=== PATIENT | male | born 1955 | race Caucasian/White ===

== ENCOUNTER 2016-12-08 14:51 | Inpatient (IN) | payer SELFPAY ==
--- NOTE | 2016-12-08 15:00 | EDPHY ---
H & P Stated Complaint: SOB and legs swelling x 4 mo;sent from [facility] for eval Time Seen by Provider: 12/08/16 14:59 HPI/ROS: CHIEF COMPLAINT: Dyspnea HISTORY OF PRESENT ILLNESS: The patient presents to the emergency department with a 4 month history of dyspnea and bilateral pedal edema. The patient has not had regular follow-up with a primary care provider. The patient denies chest pain. The patient reports he is currently taking insulin for type 2 diabetes. He reports his blood sugars have been fairly well controlled over the past week. The patient denies fever, cough, congestion or diarrhea. The patient denies prior history of kidney disease. The patient denies history of malignancy. The patient has had fairly significant weight gain. The patient does report abdominal wall swelling in addition to bilateral pedal edema. REVIEW OF SYSTEMS: A comprehensive 10 point review of systems is otherwise negative aside from elements mentioned in the history of present illness. Source: Patient Exam Limitations: No limitations - Medical/Surgical History Hx Diabetes: Yes Other PMH: diab type 2 - Social History Smoking Status: Never smoked - Physical Exam Exam: General Appearance: Obese male, deconditioned, no acute distress Eyes: Pupils equal and round no pallor or injection ENT, Mouth: Mucous membranes moist Respiratory: There are no retractions, lungs are clear to auscultation Cardiovascular: Regular rate and rhythm, 4/6 systolic ejection murmur Gastrointestinal: Abdomen is soft and nontender, no masses, bowel sounds normal Neurological: A&O, normal motor function, normal sensory exam, normal cranial nerves Skin: Warm and dry, no rashes Musculoskeletal: Neck is supple nontender Extremities: 4+ pitting edema bilaterally Psychiatric: Patient is oriented X 3, there is no agitation Constitutional: Initial Vital Signs Temperature (C) 36.6 C 12/08/16 14:54 Heart Rate 84 12/08/16 14:54 Respiratory Rate 18 12/08/16 14:54 Blood Pressure 126/68 H 12/08/16 14:54 O2 Sat (%) 96 12/08/16 14:54 O2 Delivery Mode Room Air Allergies/Adverse Reactions: No Known Allergies Allergy (Unverified 12/08/16 14:58) Home Medications: Medication Instructions Recorded Insulin Regular Human [novoLIN R] 0 unit SQ AD 12/08/16 Medical Decision Making - Diagnostics EKG Interpretation: EKG: Complete interpretation has been separately recorded in the [facility] archive. Summary impression: Sinus rhythm, Q-waves noted in the inferior leads , nonspecific ST T wave changes present Imaging Results: Imaging Impressions Chest X-Ray 12/08/16 15:06 Impression: Probable congestive heart failure. Abdomen CT 12/08/16 16:04 Impression: 1. Hepatic cirrhosis with small paraesophageal and upper abdominal venous varices. 2. Retroperitoneal lymphadenopathy, most pronounced in the pelvis involving the left common, internal, and external iliac lymph node chains, left obturator lymph node, and left common femoral lymph nodes. There is no evidence of common iliac or IVC compression, however. A neoplastic lymphoproliferative disorder should be excluded. 3. Mild generalized anasarca. 4. Morbid obesity. 5. Single punctate gallstone (cholelithiasis, without cholecystitis or bile duct dilatation). 6. Mild groundglass attenuation pneumonitis at the lung bases, left greater than right. This could inflammatory or infectious, or associated with passive congestion. Findings were discussed with Pollo Barron MD at 18:21, on 12/08/2016. ED Course/Re-evaluation: The patient presents to the ED with dyspnea on exertion and significant weight gain with anasarca. The patient is noted to have stable vital signs. His EKG demonstrates no evidence of arrhythmia. The patient's chest x-ray does suggest mild heart failure. The patient did receive IV Lasix in the emergency department. I have ordered a CT scan of the abdomen pelvis to evaluate possible IVC compression as an additional etiology of his lower extremity edema. I do feel the patient should be admitted to the hospital for further evaluation and management of his presumed right heart failure. The patient has no evidence of significant renal failure or low protein state to explain his significant edema. Consultation was made with Dr. Santos Chavarria from the hospitalist service. The patient will be admitted to the hospital this evening for observation and further management. The patient remained hemodynamically stable throughout his stay in the ED. The patient will be admitted for further workup of his presumed heart failure including echocardiogram, telemetry monitoring and cardiology consultation. The patient did have a CT scan of the abdomen pelvis which does demonstrate some retroperitoneal adenopathy of uncertain clinical significance. Workup at this condition will be deferred to the admitting hospitalist service. Differential Diagnosis: Differential diagnosis considered includes nephrotic syndrome, congestive heart failure, cor pulmonale, renal failure, low protein state, anemia - Data Points Laboratory Results: Laboratory Results 12/08/16 15:25 12/08/16 15:25 12/08/16 12/08/16 12/08/16 15:25 15:25 15:25 WBC 7.49 10^3/uL 10^3/uL (3.80-9.50) RBC 3.79 10^6/uL L 10^6/uL (4.40-6.38) Hgb 13.4 g/dL L g/dL (13.7-17.5) Hct 38.7 % L % (40.0-51.0) MCV 102.1 fL H fL (81.5-99.8) MCH 35.4 pg H pg (27.9-34.1) MCHC 34.6 g/dL g/dL (32.4-36.7) RDW 14.6 % % (11.5-15.2) Plt Count 191 10^3/uL 10^3/uL (150-400) MPV 11.5 fL fL (8.7-11.7) Neut % (Auto) 50.8 % % (39.3-74.2) Lymph % (Auto) 34.3 % % (15.0-45.0) Ida % (Auto) 8.1 % % (4.5-13.0) Eos % (Auto) 4.5 % % (0.6-7.6) Baso % (Auto) 1.5 % % (0.3-1.7) Nucleat RBC Rel Count 0.0 % % (0.0-0.2) Absolute Neuts (auto) 3.80 10^3/uL 10^3/uL (1.70-6.50) Absolute Lymphs (auto) 2.57 10^3/uL 10^3/uL (1.00-3.00) Absolute Monos (auto) 0.61 10^3/uL 10^3/uL (0.30-0.80) Absolute Eos (auto) 0.34 10^3/uL 10^3/uL (0.03-0.40) Absolute Basos (auto) 0.11 10^3/uL H 10^3/uL (0.02-0.10) Absolute Nucleated RBC 0.00 10^3/uL 10^3/uL (0-0.01) Immature Gran % 0.8 % % (0.0-1.1) Immature Gran # 0.06 10^3/uL 10^3/uL (0.00-0.10) PT 15.5 SEC H SEC (12.0-15.0) INR 1.23 H (0.83-1.16) D-Dimer 2.13 ug/mLFEU H ug/mLFEU (0.00-0.50) Sodium 141 mEq/L mEq/L (134-144) Potassium 4.1 mEq/L mEq/L (3.5-5.2) Chloride 110 mEq/L mEq/L (97-110) Carbon Dioxide 23 mEq/l mEq/l (22-31) Anion Gap 8 mEq/L mEq/L (8-16) BUN 16 mg/dL mg/dL (7-23) Creatinine 0.6 mg/dL L mg/dL (0.7-1.3) Estimated GFR > 60 Glucose 172 mg/dL H mg/dL (70-100) Calcium 8.0 mg/dL L mg/dL (8.5-10.4) Total Bilirubin 4.1 mg/dL H mg/dL (0.1-1.4) Conjugated Bilirubin 2.1 mg/dL H mg/dL (0.0-0.5) Unconjugated Bilirubin 2.0 mg/dL H mg/dL (0.0-1.1) AST 81 IU/L H IU/L (17-59) ALT 53 IU/L IU/L (21-72) Alkaline Phosphatase 244 IU/L H IU/L (38-126) Troponin I 0.031 ng/mL ng/mL (0-0.034) NT-Pro-B Natriuret Pep 600 pg/mL H pg/mL (0-125) Total Protein 7.0 g/dL g/dL (6.3-8.2) Albumin 2.9 g/dL L g/dL (3.5-5.0) Medications Given: Discontinued Medications Furosemide (Lasix Injection) 40 mg IVP EDNOW ONE Stop: 12/08/16 16:06 Last Admin: 12/08/16 16:15 Dose: 40 mg Departure - Departure Disposition: [facility] Clinical Impression: Right heart failure, Dyspnea on exertion Condition: Fair
--- NOTE | 2016-12-08 15:19 | CPEKG ---
Heart Rate: 82 RR Interval: 732 P-R Interval: 164 QRSD Interval: 102 QT Interval: 416 QTC Interval: 486 P [place]: 55 QRS [place]: -47 T Wave [place]: 97 EKG Severity - ABNORMAL ECG - EKG Impression: SINUS RHYTHM EKG Impression: VENTRICULAR PREMATURE COMPLEX Electronically Signed By: Pollo Barron 08-Dec-2016 17:53:11
[2016-12-08 15:37] LABS: % IMMATURE GRANULYOCYTES 0.8 % (0.0-1.1); ABSOLUTE IMMATURE GRANULOCYTES 0.06 10^3/uL (0.00-0.10); ADD DIFF? NO; ADD MORPH? NO; ADD SCAN? NO; ATYPICAL LYMPHOCYTE FLAG 30 (0-99); FRAGMENT RBC FLAG 0 (0-99); HEMATOCRIT 38.7 % (40.0-51.0); HEMOGLOBIN 13.4 g/dL (13.7-17.5); LEFT SHIFT FLG 0 (0-99); LIPEMIA HEMOLYSIS FLAG 90 (0-99); MEAN CELL HEMOGLOBIN 35.4 pg (27.9-34.1); MEAN CELL HEMOGLOBIN CONCENTR. 34.6 g/dL (32.4-36.7); MEAN CELL VOLUME 102.1 fL (81.5-99.8); MEAN PLATELET VOLUME 11.5 fL (8.7-11.7); PLATELET CLUMPS FLAG 10 (0-99); PLATELET COUNT 191 10^3/uL (150-400); RED BLOOD CELL COUNT 3.79 10^6/uL (4.40-6.38); RED CELL DISTRIBUTION WIDTH 14.6 % (11.5-15.2)
[2016-12-08 15:46] LABS: ALANINE AMINOTRANSFERASE 53 IU/L (21-72); ALBUMIN 2.9 g/dL (3.5-5.0); ALKALINE PHOSPHATASE 244 IU/L (38-126); ANION GAP 8 mEq/L (8-16); ASPARTATE AMINOTRANSFERASE 81 IU/L (17-59); BILIRUBIN,TOTAL 4.1 mg/dL (0.1-1.4); BILIRUBIN-CONJUGATED 2.1 mg/dL (0.0-0.5); CARBON DIOXIDE 23 mEq/l (22-31); CHLORIDE 110 mEq/L (97-110); CREATININE 0.6 mg/dL (0.7-1.3); GLOMERULAR FILTRATION RATE > 60; GLUCOSE 172 mg/dL (70-100); POTASSIUM 4.1 mEq/L (3.5-5.2); SODIUM 141 mEq/L (134-144)
[2016-12-08 15:55] LABS: TROPONIN I 0.031 ng/mL (0-0.034)
[2016-12-08] MEDS ORDERED: FUROSEMIDE 40 MG/4 ML VIAL IVP ONE (16:05)
[2016-12-08 16:06] LABS: INR 1.23 (0.83-1.16); PROTIME(PATIENT) 15.5 SEC (12.0-15.0)
[2016-12-08] MEDS ORDERED: IOPAMIDOL (ISOVUE-300) 100 ML BTL ONE (16:11)
[2016-12-08] MEDS ORDERED: ACETAMINOPHEN 325 MG TAB PO PRN (17:11)
[2016-12-08] MEDS ORDERED: ONDANSETRON DISINTEGRATING 4 MG TAB PO PRN (17:11)
[2016-12-08] MEDS ORDERED: TEMAZEPAM 15 MG CAP PO PRN (17:11)
[2016-12-08] MEDS ORDERED: ONDANSETRON 4 MG/2 ML VIAL IVP PRN (17:11)
[2016-12-08] MEDS ORDERED: D50W 25 GM/50 ML SYR IVP PRN (17:13)
--- NOTE | 2016-12-08 17:52 | GHP ---
[f rep st] HISTORY AND PHYSICAL DATE OF ADMISSION: 12/08/2016 CHIEF COMPLAINT: 20 pounds' weight gain. HISTORY OF PRESENT ILLNESS: This is a 61-year-old male with a history of diabetes who presents with lower extremity edema, increasing abdominal girth and weight gain. He tells me this has been going on since about fall. He has also noticed that he gets extremely short of breath walking to the mailbox. Previously, he said he used to be able to walk about 15 miles a day, 2 years ago. He denies any chest pain. He has never seen a palliative care coordinator, never had any heart problems before. He was told about a new murmur in July. He denies any change in the color of his urine or his stool color. He drinks alcohol, it sounds as though he binges occasionally but does not have a significant history. PAST MEDICAL/SURGICAL HISTORY: Diabetes mellitus type 2. MEDICATIONS: Please see medication reconciliation. ALLERGIES: No known drug allergies. FAMILY HISTORY: Both parents had heart problems in their 70s. REVIEW OF SYSTEMS: 10-point review of systems is conducted and is negative except per HPI. [place]IAL HISTORY[place] PHYSICAL EXAM: VITAL SIGNS: Blood pressure 113/69, heart rate is 76, respiration rate 20, saturating 95% on room air. Temperature is 36.8. GENERAL : The patient is a pleasant man who is sitting comfortably, in no acute distress. HEENT: Normocephalic, atraumatic. CARDIOVASCULAR: Regular rate and rhythm. He has a crescendo/decrescendo systolic murmur, heard best at the right upper sternal border. S1 and S2 are both obliterated. PULMONARY: He has mild bilateral basilar rales. He is breathing comfortably. ABDOMEN: He has a firm abdomen, there is no guarding or rebound. It is not tender to palpation. SKIN: No rash. : No Dean. NEUROLOGIC: Alert and oriented x3. He is moving all extremities. PSYCHIATRIC: Normal mood and affect. EXTREMITIES: 2+ bilateral lower extremity pitting edema. LABS: Hemoglobin 13. INR is 1.2. Total bilirubin is 4.1, 2.1 is conjugated. AST is 81, alkaline phosphatase is 244. BNP is 600. DATA: 1. ECG, which I personally viewed and interpreted, shows 1 PVC, otherwise he is in sinus rhythm. He has slow R-wave progression. He has an LAFB. 2. Chest x-ray shows findings compatible with CHF with borderline cardiomegaly and engorged pulmonary vasculature. I discussed this with Dr. Barron, we will admit to med/surg. IMPRESSION AND PLAN: A 61-year-old man with volume overload. 1. Volume overload: I suspect that this is going to be left-sided heart failure, and I am concerned about him having severe aortic stenosis. Also consider cirrhosis or hypoalbuminemia. CT scan of his abdomen has been ordered , this will assess his liver. I have ordered bilateral lower extremity ultrasounds to rule out DVT. Echocardiogram has been ordered. We will trend his troponins, as well. 2. Elevated D-dimer: Given his x-ray findings, I doubt pulmonary embolism. Lower extremity ultrasounds have been ordered, as above. If he does have very severely elevated right-sided pressures with normal left-sided function, would consider CT angiogram. 3. Elevated liver function tests: CT scan has been ordered. This will evaluate his liver. I have also ordered an acute hepatitis panel. 4. Mild anemia. 5. Mild coagulopathy. 6. Diabetes mellitus type 2: We will continue his home insulin and follow his blood glucoses, and place him on sliding scale insulin. 7. Venous thromboembolism risk: He is moderate; however, he is being admitted as observation. If he becomes an inpatient, would prophylax him with Lovenox. /[id number]/MODL MTDD
[2016-12-08] MEDS: INSULIN LISPRO 100 UNIT/ML SC SCH (18:39)
[2016-12-08 19:24] LABS: TROPONIN I 0.043 ng/mL (0-0.034)
[2016-12-09 04:40] LABS: % IMMATURE GRANULYOCYTES 0.5 % (0.0-1.1); ABSOLUTE IMMATURE GRANULOCYTES 0.03 10^3/uL (0.00-0.10); ADD DIFF? NO; ADD MORPH? NO; ADD SCAN? NO; ATYPICAL LYMPHOCYTE FLAG 30 (0-99); FRAGMENT RBC FLAG 0 (0-99); HEMATOCRIT 37.9 % (40.0-51.0); HEMOGLOBIN 12.9 g/dL (13.7-17.5); LEFT SHIFT FLG 0 (0-99); LIPEMIA HEMOLYSIS FLAG 90 (0-99); MEAN CELL VOLUME 102.7 fL (81.5-99.8); MEAN PLATELET VOLUME 11.5 fL (8.7-11.7); PLATELET CLUMPS FLAG 0 (0-99); PLATELET COUNT 175 10^3/uL (150-400); RED BLOOD CELL COUNT 3.69 10^6/uL (4.40-6.38); RED CELL DISTRIBUTION WIDTH 14.5 % (11.5-15.2)
[2016-12-09 04:43] LABS: COLOR AMBER; LEUKOCYTE ESTERASE,URINE NEGATIVE (NEGATIVE); NITRITE,URINE NEGATIVE (NEGATIVE)
[2016-12-09 04:55] LABS: ALANINE AMINOTRANSFERASE 53 IU/L (21-72); ALBUMIN 2.5 g/dL (3.5-5.0); ALKALINE PHOSPHATASE 222 IU/L (38-126); ANION GAP 7 mEq/L (8-16); ASPARTATE AMINOTRANSFERASE 74 IU/L (17-59); BILIRUBIN,TOTAL 4.5 mg/dL (0.1-1.4); CALCIUM 8.1 mg/dL (8.5-10.4); CARBON DIOXIDE 23 mEq/l (22-31); CHLORIDE 111 mEq/L (97-110); CREATININE 0.6 mg/dL (0.7-1.3); GLOMERULAR FILTRATION RATE > 60; GLUCOSE 87 mg/dL (70-100); POTASSIUM 3.9 mEq/L (3.5-5.2); SODIUM 141 mEq/L (134-144); TOTAL PROTEIN 6.3 g/dL (6.3-8.2)
[2016-12-09 05:27] LABS: BILIRUBIN-CONJUGATED 2.3 mg/dL (0.0-0.5); BILIRUBIN-UNCONJUGATED 2.2 mg/dL (0.0-1.1)
[2016-12-09] MEDS: INSULIN LISPRO 100 UNIT/ML SC SCH ×3 (08:39→18:18)
[2016-12-09] MEDS: FUROSEMIDE 40 MG/4 ML VIAL IVP SCH ×2 (08:50→16:30)
--- NOTE | 2016-12-09 11:42 | ECHO ---
[id number] + + [address] : : [place] [address] : : [phone] + Adult Echocardiographic Report + ------+ :Name: Emmanuel MILLERvinicius Date: 12/09/2016 09:47 AM : : Hospital Ad[facility]: [id number] n: [facility]: :: 1955 Gender: Male Height: 67 in : :Age: 61 yrs Race: WH Weight: 240 lb : :Reason For Study: CHF : : BSA: 2.2 meters 2 : + ------+ MMode/2D Measurements \T\ Calculations IVSd: 1.0 cm LVIDd: 5.6 cm FS: 36.1 % LA dimension: LVPWd: 1.1 cm LVIDs: 3.6 cm EDV(Teich): 4.8 cm 151.0 ml ESV(Teich): 52.7 ml EF(Teich): 65.1 % LVOT diam: LVLd ap4: 9.5 cm SV(MOD-sp4): 2.1 cm EDV(MOD-sp4): 109.0 ml LVOT area: 156.0 ml 3.6 cm2 LVLs ap4: 7.6 cm ESV(MOD-sp4): 47.0 ml EF(MOD-sp4): 69.9 % Normal Measurement Values: + + :LVIDd (3.5-5.7cm) IVSd (0.6-1.1cm) LVPWd (0.6-1.1cm) Aortic Root (2.0-3.7cm)Left Atrium (1.5-4.0cm): :LV Vol(d) (76-115ml) LV Vol(s) (29-48ml) Ejec Fraction (50-65%)PV Cristofer (0.6- 1.2m/s) TV Cristofer (0.4-1.0m/s) : :MV E Cristofer (0.8-1.0m/s)MV A Cristofer (0.3-1.0m/s)LVOT Cristofer (0.7-1.2m/s) Asc Ao Cristofer ( 0.9-1.8m/s) : + + Doppler Measurements \T\ Calculations MV E max cristofer: MV V2 mean: Ao mean PG: LV V1 max: 150.3 cm/sec 89.0 cm/sec 50.1 mmHg 103.6 cm/sec MV A max cristofer: MV mean PG: Ao V2 mean: LV V1 max P.7 cm/sec 4.1 mmHg 335.0 cm/sec 4.3 mmHg MV E/A: 2.1 MV V2 VTI: 43.6 cm Ao V2 VTI: LV V1 mean PG: MV dec time: MVA(VTI): 1.9 cm2 110.9 cm 3.0 mmHg 0.26 sec SHOSHANA(I,D): 0.73 cm2 LV V1 mean: 75.2 cm/sec LV V1 VTI: 22.7 cm SV(LVOT): 81.4 ml TR max cristofer: 306.2 cm/sec TR max P.5 mmHg RAP systole: 5.0 mmHg RVSP(TR): 42.5 mmHg Left Ventricle The left ventricle is normal in size. There is mild concentric left ventricular hypertrophy. Left ventricular systolic function is normal. Ejection Fraction = 65-70%. No regional wall motion abnormalities noted. Right Ventricle The right ventricle is normal in size and function. Atria The left atrium is mildly dilated. Right atrial size is normal. The interatrial septum is intact with no evidence for an atrial septal defect. Mitral Valve Calcified mitral apparatus. There is no evidence of mitral valve prolapse. There is no mitral valve stenosis. There is mild mitral regurgitation. Tricuspid Valve Normal tricuspid valve. There is mild tricuspid regurgitation. Aortic Valve Severe aortic calcification. Severe valvular aortic stenosis. AV max PG is 83mmHG. AV mean PG is 50mmHG. Mild to moderate aortic regurgitation. Pulmonic Valve The pulmonic valve is normal in structure and function. Trace pulmonic valvular regurgitation. Great Vessels The aortic root is normal size. Pericardium/Pleural There is no pericardial effusion. Conclusion A complete two-dimensional transthoracic echocardiogram was performed (2D, M-mode, Doppler and color flow Doppler). Left ventricular systolic function is normal. There is mild concentric left ventricular hypertrophy. Ejection Fraction = 65-70%. Normal wall motion. The left atrium is mildly dilated. Calcified mitral apparatus. There is mild mitral regurgitation. There is mild tricuspid regurgitation. Severe aortic calcification. Unknown number of aortic valve leaflets. Severe valvular aortic stenosis. AV max PG is 83mmHG. AV mean PG is 50mmHG. Mild to moderate aortic regurgitation. Trace pulmonic valvular regurgitation. Final Reading Physician: Jennifer Molina signed on 12/09/2016 11:41 AM Ordering Physician: Santos Chavarria Performed By: Augusta Crook RDCS
--- NOTE | 2016-12-09 14:55 | GCON ---
[f rep st] CONSULTATION CARDIOLOGY CONSULTATION We were asked by Dr. Chavarria to evaluate Mr. Delgado for his aortic stenosis and CHF. HISTORY OF PRESENT ILLNESS: The patient is a 61-year-old male with a past medical history significa nt for obesity, aortic stenosis, type 2 diabetes mellitus who is admitted for new onset CHF. He rep orts symptoms approximately since the fall. He would note dyspnea with exerting himself such as wal dona to his mailbox and back. He had an acute episode of worsening shortness of breath where he wou ld feel very short of breath just walking from room to room in his house in the setting of a URI. H e increased his hydration and felt that symptoms improved. What prompted his admission was dyspnea with associated orthopnea and PND. He was unable to lie down to sleep which was very unusual for hi m. He denies any chest pain, presyncope, syncope, or lightheadedness. He has noted worsening perip heral edema which has improved with diuretic therapy just since being admitted yesterday. PAST MEDICAL HISTORY: Type 2 diabetes mellitus. SURGERIES: None listed. SOCIAL HISTORY: Patient lives by himself in the [facility]. He is a nonsmoker. He reports no signi ficant alcohol recently. Over the summer, he had a lot of stress and does endorse binge drinking at that time. REVIEW OF SYSTEMS: As per HPI. A complete 10-point review of systems was obtained and is negative except for what is dictated. PHYSICAL EXAMINATION: VITAL SIGNS: BP of 131/65, heart rate 76, respirations 18, O2 saturation 94% on room air, temp of 99.2 degrees Fahrenheit. GENERAL: He is a very pleasant male appearing somew hat pale. No apparent distress. HEENT: Normocephalic atraumatic. Eyes are EILEEN with mild scleral icterus. HEART: With a harsh holosystolic murmur radiating to his carotids. LUNGS: Clear to aus cultation. ABDOMEN: Obese, nontender with normoactive bowel sounds. SKIN: With 1+ edema present. PSYCH: Normal mood and affect due to given situation. LABORATORY STUDIES: CBC with WBC 6.35, hemoglobin 12.9, hematocrit 37.5, platelet count of 175. BM P with sodium 141, potassium 3.9, chloride 111, CO2 of 23, BUN 14, creatinine 0.6, glucose 106. Tro ponin 0.03, then 0.037. AST 74, ALT 53, alkaline phosphatase of 222. TSH of 1.76. Echocardiogram reviewed and shows EF of 65-70, mild concentric LVH with mildly dilated left atrium. MAC with mild MR and mild TR present, severe with mean gradient of 50, mild to moderate AR. 12-lead ECG personally interpreted demonstrates sinus rhythm with slow R-wave progression, LAFB, 1 P VC, and lateral ST-T wave abnormalities. Chest x-ray shows findings compatible with CHF. Abdominal CT reviewed shows hepatic cirrhosis with small paraesophageal and upper abdominal venous varices, retroperitoneal lymphadenopathy most pronou nced in the pelvis involving the left common internal and external iliac lymph node chains, left obt urator lymph nodes, and left common femoral lymph nodes. A neoplastic lymphoproliferative disorder cannot be excluded. Mild generalized anasarca. IMPRESSION AND PLAN: The patient is a 61-year-old male admitted with new onset congestive heart karely lure likely developed in the fall with worsening in the past few days. 1. Severe . Patient is advised that this surgical versus trans aortic valvular replacement alfredo d be considered. He has many psychosocial issues including lack of insurance and possibly having to move out of his home that is complicating his medical decision-making at this point. I have advise d that we obtain a surgical consult to further lay out his options. 2. Cirrhosis. He will need to see GI to have this addressed prior to any kind of cardiac intervent ion being undertaken. 3. Congestive heart failure. He has diastolic congestive heart failure related to his valvular hea rt disease. He has a diuresed only 1 kg but reports feeling improved. He is advised that he does s till appear volume overloaded and is advised to continue IV diuresis and transition to p.o. He will consider this. /[id number]/MODL
--- NOTE | 2016-12-09 15:18 | HOSPPROG ---
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 Malik Jacques from GI [facility] will see the patient in consultation # macrocytic anemia # mild coagulopathy due to hepatic dysfunction # diabetes mellitus type 2 disposition: Changed to inpatient status since he will need further hospitalization for IV diuresis and further workup of his cirrhosis and heart failure. Subjective: Reports improved swelling and shortness of breath. No chest pain. Reports 3 alcoholic drinks per night for the past few weeks Objective: Vital Signs Temp Pulse Resp BP Pulse Ox 37.3 C 76 18 131/65 H 94 12/09/16 11:48 12/09/16 11:48 12/09/16 11:48 12/09/16 11:48 12/09/16 11:48 Laboratory Results 12/09/16 04:31 12/09/16 04:31 PT 15.5 SEC (12.0-15.0) H 12/08/16 15:25 INR 1.23 (0.83-1.16) H 12/08/16 15:25 CT of the abdomen pelvis was reviewed consistent with cirrhosis - Physical Exam Constitutional: no apparent distress, appears nourished, not in pain Ears, Nose, Mouth, Throat: moist mucous membranes, hearing normal, ears appear normal, no oral mucosal ulcers Cardiovascular: regular rate and rhythym, systolic murmur, JVD, edema Respiratory: no respiratory distress, no rales or rhonchi, clear to auscultation Gastrointestinal: normoactive bowel sounds, soft, non-tender abdomen, no palpable masses, distension, No guarding, No rebound ICD10 Worksheet Patient Problems: Problems Problem Status Onset Right heart failure Acute Dyspnea on exertion Acute
[2016-12-09] MEDS: SPIRONOLACTONE 25 MG TAB PO SCH (16:30)
--- NOTE | 2016-12-09 17:06 | GCON ---
[f rep st] CONSULTATION GI INPATIENT CONSULTATION DATE OF CONSULTATION: 12/09/2016 I was kindly requested to see the patient by Dr. Ajay Benedict in consultation for chief complaint of probable cirrhosis. He is a 61-year-old, white male who was admitted to the hospital with anasarca and shortness of breath. He has noticed since the Fall that he has had increase in abdominal girth and weight gain. He also has noticed dyspnea on exertion, even to just walking to the mailbox. He does drink alcohol, and states he has roughly 3 drinks per night. Here in the hospital, he has been found to have severe aortic stenosis with acute heart failure. PAST MEDICAL HISTORY: 1. As above. 2. Diabetes. 3. Otherwise, noncontributory. ALLERGIES: No known drug allergies. INPATIENT MEDICATIONS: Include Lasix 40 mg IV twice a day and spironolactone 50 mg daily. SOCIAL HISTORY: Is as above. He lives by himself in the [facility]. FAMILY HISTORY: Negative for similar anasarca. REVIEW OF SYSTEMS: Positive pertinent review of systems as per my HPI. Otherwise, complete review of systems is negative. PHYSICAL EXAM: CONSTITUTIONAL: Nontoxic-appearing, pleasant gentleman. SKIN: Warm, dry. HEENT: Eyes: Pupils equal, round, reactive to light and accommodation. Ear, nose, mouth and throat: Moist mucosa, no obvious masses. CARDIOVASCULAR: Normal S2, normal PMI. He has a murmur consistent with aortic stenosis. RESPIRATORY: Lungs clear to auscultation and percussion anteriorly. ABDOMEN: Profuse, nontender. EXTREMITIES: Significant pedal edema. NEUROLOGIC: Grossly nonfocal, with cranial nerves grossly intact. PSYCHIATRIC : Orientation, insight appropriate. MUSCULOSKELETAL: Strength grossly normal throughout, normal station. LABORATORIES: Normal electrolytes. Total bilirubin 4.5, with a direct bilirubin of 2.3. AST 74. Alkaline phosphatase 222. Hematocrit 37.9%, with an MCV of 102.7. Platelet count 175,000. Prothrombin time 15.5 with an INR 1.23. Albumin 2.5. Normal TSH. Urinalysis is negative. Hepatitis serology is negative. Abdominal CT scan shows probable cirrhosis, with small varices. Mild anasarca. Positive gallstones. ASSESSMENT: 1. Anasarca. Suspect much of this is due to his severe aortic stenosis and acute heart failure, especially with his dyspnea on exertion. However, also suspect that cirrhosis is playing a role in his abdominal and leg fluid retention. 2. Probable cirrhosis. Indeed, suspect cirrhosis based on his CT and abnormal liver tests. In turn, suspect due to alcohol use. Some contribution from right -sided heart failure is also possible. Other possibilities, such as alpha-1 antitrypsin deficiency, hemochromatosis, autoimmune hepatitis, primary biliary cirrhosis are possible, but much less likely. PLAN: 1. To be complete, we will send blood work for alpha-1 antitrypsin level, hemochromatosis phenotype, CHRISS screen, anti smooth muscle antibody, and antimitochondrial antibody. However, suspect will be negative, and suspect his probable cirrhosis is due to combination of alcohol and right-sided heart failure. 2. Diuretics as per Cardiology, hospitalist service. 3. In terms of potential future aortic valve surgery, he certainly would be at increased risk for this with his probable underlying cirrhosis. However, if felt necessary, suspect the benefits would outweigh the risks. 4. Otherwise, recommend follow up with his outpatient primary care physician. 5. I will sign off. I will follow up on the above blood work, but suspect will be negative. Otherwise, please let me know if I can be of further help in the future. /[id number]/MODL MTDD
[2016-12-10 07:31] VITALS: BP 118/70; PULSE 78; RESP 14; TEMP 98.5; O2SAT 95
[2016-12-10] MEDS: INSULIN LISPRO 100 UNIT/ML SC SCH (07:43)
[2016-12-10] MEDS: SPIRONOLACTONE 25 MG TAB PO SCH (07:59)
[2016-12-10] MEDS: FUROSEMIDE 40 MG/4 ML VIAL IVP SCH (07:59)
--- NOTE | 2016-12-10 11:25 | PDCARPN ---
Cardiology Progress Note Chief Complaint: CHF/ Assessment/Plan: Assessment: 61M PMH DM, obesity, p/w new onset heart failure. #. severe : we reviewed that surgical evaluation is needed/ antecedent LHC would be useful pt would like to complete workup as outpatient he is given contacts to establish cardiology and CT follow up as outpatient #. HFpEF: symptoms since fall but severe worsening but prior to admission pt reports breathing improved started on Spironolactone and PO lasix #. cirrhosis/hepatic congestion: has been diuresing well #. DM: continue outpatient insulin therapy Plan: OK to d/c but will need close outpatient follow up 12/10/16 11:19 Subjective: Reports breathing improved. Anxious to leave hospital. Reviewed/Discussed With: hospitalist Objective: Vital Signs (8 Hrs) Temp Pulse Resp BP Pulse Ox 12/10/16 07:29 98.5 F 78 14 118/70 95 Intake/Output (24 Hrs) 12/09/16 12/10/16 12/11/16 05:59 05:59 05:59 Other: Weight 127.6 kg Intake Quantity Yes Sufficient Number of Stools Toilet 2 Result Diagrams: 12/09/16 04:31 12/09/16 04:31 - Physical Exam Constitutional: no apparent distress Eyes: anicteric sclera Cardiovascular: regular rate and rhythm, systolic murmur Skin: other (trace-1+ edema) Neurologic: AAOx3 Psychiatric: cooperative, interactive ICD10 Worksheet Patient Problems: Problems Problem Status Onset Dyspnea on exertion Acute Right heart failure Acute
--- NOTE | 2016-12-10 13:40 | GDS ---
[f rep st] DISCHARGE SUMMARY DISCHARGE DIAGNOSES: 1. Weight gain and anasarca due to below. 2. Acute heart failure with preserved ejection fraction due to severe mitral regurgitation. 3. 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 4. Macrocytic anemia. 5. Mild coagulopathy due to hepatic dysfunction. 6. Diabetes mellitus 2. ADDITIONAL CONSULTING PHYSICIANS: Elbert Sims MD and Dennise Quezada PA-C, from [facility] arology. HOSPITAL COURSE AND STAY BY PROBLEMS: 1. Anasarca due to acute heart failure with concomitant cirrhosis: The patient was admitted to the hospital where he was found to have a very loud systolic murmur at the right upper sternal border. An echocardiogram done on 12/08/2016 confirmed the diagnosis of severe aortic valve stenosis with a n AV mean pressure gradient of 50 mmHg with a max pressure gradient of 83 mmHg. The patient was sta rted on diuretics. On hospital day #1, the patient states he felt much better and really wanted to be discharged from the hospital. It was recommended that he stay in the hospital at least 1 more da y given his lack of significant weight loss. The morning of hospital day #2, once again the patient was fairly adamant about leaving the hospital. He states that he wants to go and would like to obt ain insurance prior to talking with the cardiothoracic surgeon. He was seen by Cardiology on day of discharge who thought it was reasonable for him to discharge on Lasix and Aldactone with close foll owup with them. Prior to seeing CT Surgery, he should have a left heart catheterization to further evaluate his coronary arteries. 2. Cirrhosis: On initial lab workup, the patient was noted to have elevated INR at 1.2. AST was m inimally elevated at 74 with ALT of 53. His albumin was 2.5. A CT of the abdomen and pelvis was do ne that did show hepatic cirrhosis. Dr. Jacques from [facility] was consulted who ordered a hem ochromatosis screen, which is currently pending, as well as an CHRISS and antismooth muscle and antimit ochondrial antibodies, which are also pending. Alpha-1 antitrypsin is pending as well. PHYSICAL EXAM: VITAL SIGNS: On day of discharge, blood pressure 118/70, pulse 78, respiratory rate 14, O2 sat 95% on room air, temperature afebrile. GENERAL: No acute distress. HEART: S1, S2 wit h a loud of 5/6 holosystolic murmur right upper sternal border that radiates to the carotids. LUNGS : Clear. No wheezes, rales, or rhonchi. ABDOMEN: Soft. EXTREMITIES: Improved edema. PERTINENT LABS AND STUDIES: Echocardiogram done 12/08/2016, refer to report. CT of the abdomen don e 12/08/2016, refer to report. Lower extremity Doppler done 12/08/2016 was negative for DVTs. DISCHARGE MEDICATIONS: Please refer to discharge medication reconciliation in [facility] for full det ails. Below is a preliminary list. New medications on hospital discharge, Lasix 20 mg daily and Aldactone 25 mg daily. Prescription fo r #30 was given of each. All other home medications are continued as usual home dosages. DISCHARGE INSTRUCTIONS: The patient will be discharged from the hospital. Once again, he should fo llow up with his primary care provider in the next week as well as Dr. Mason in 2 weeks and with Car diology as instructed. /[id number]/MODL
[2016-12-10 17:45] LABS: ALPHA-1-ANTITRYPSIN SERUM 207 mg/dL (100 - 190)
[2016-12-11 13:41] LABS: ANTINUCLEAR ANTIBODIES SCREEN 1.02 UNITS (<=1.00)
[2016-12-11 14:14] LABS: SMOOTH MUSCLE ANTIBODIES SERUM Negative (Negative)
[2016-12-16 13:28] LABS: INTERPRETATION See Comments
== END 2016-12-10 12:09 | disposition home or self-care (01) | DRG 293 ==
LOC: INTOOBSV 16:40 → F3E 18:08 → OBSVTOIN 12-09 15:30
PROVIDERS: ADMIT Student in an Organized Health Care Education/Training Program; ATTEND Student in an Organized Health Care Education/Training Program
DX: I50.31 Acute diastolic (congestive) heart failure (principal); I35.0 Nonrheumatic aortic (valve) stenosis; K76.0 Fatty (change of) liver, not elsewhere classified; D53.9 Nutritional anemia, unspecified; E11.9 Type 2 diabetes mellitus without complications; E66.01 Morbid (severe) obesity due to excess calories; Z79.4 Long term (current) use of insulin
CPT/HCPCS: 81256-90; 82103-90; 86255-90; 96374; G0378; G0472; J1815; J1940; Q9967

== ENCOUNTER 2017-05-04 06:14 | Day surgery (SDC) | payer MEDICAID ==
[2017-05-04] MEDS ORDERED: diphenhydrAMINE 25 MG CAP PO ONE (06:17)
[2017-05-04] MEDS ORDERED: DIAZEPAM 5 MG TAB PO ONE (06:17)
[2017-05-04] MEDS ORDERED: ASPIRIN EC 325 MG TAB PO ONE (06:17)
[2017-05-04] MEDS ORDERED: NS 1,000 ML IV ONE (06:17)
[2017-05-04] MEDS ORDERED: FAMOTIDINE 20 MG TAB PO ONE (06:17)
--- NOTE | 2017-05-04 06:36 | PDPROPOC ---
Sedation Plan of Care ASA Classification: ASA 2 Planned drugs: fentanyl, midazolam Mallampati Score: Class 2 Mallampati Reference Image: Patient passed 3-3-2 rule?: Yes
--- NOTE | 2017-05-04 06:36 | PDHPUP ---
History & Physical Update H&P update statement: This history and physical update is based on an assessment of the patient which was completed after admission or registration (within 24 hours), but prior to the surgery/procedure. H&P update: no change in patient's condition since H&P completed
[2017-05-04 06:47] LABS: % IMMATURE GRANULYOCYTES 0.5 % (0.0-1.1); ABSOLUTE IMMATURE GRANULOCYTES 0.04 10^3/uL (0.00-0.10); ADD DIFF? NO; ADD MORPH? NO; ADD SCAN? NO; ATYPICAL LYMPHOCYTE FLAG 30 (0-99); FRAGMENT RBC FLAG 0 (0-99); HEMATOCRIT 37.7 % (40.0-51.0); HEMOGLOBIN 13.8 g/dL (13.7-17.5); LEFT SHIFT FLG 0 (0-99); LIPEMIA HEMOLYSIS FLAG 90 (0-99); MEAN CELL HEMOGLOBIN 37.3 pg (27.9-34.1); MEAN CELL HEMOGLOBIN CONCENTR. 36.6 g/dL (32.4-36.7); MEAN CELL VOLUME 101.9 fL (81.5-99.8); MEAN PLATELET VOLUME 10.7 fL (8.7-11.7); PLATELET CLUMPS FLAG 0 (0-99); PLATELET COUNT 189 10^3/uL (150-400); RED CELL DISTRIBUTION WIDTH 13.9 % (11.5-15.2)
--- NOTE | 2017-05-04 06:48 | CPEKG ---
Heart Rate: 84 RR Interval: 714 P-R Interval: 168 QRSD Interval: 108 QT Interval: 420 QTC Interval: 497 P [place]: 55 QRS [place]: -45 T Wave [place]: 115 EKG Severity - ABNORMAL ECG - EKG Impression: SINUS RHYTHM EKG Impression: PROBABLE LEFT ATRIAL ABNORMALITY EKG Impression: LEFT ANTERIOR FASCICULAR BLOCK EKG Impression: LVH WITH SECONDARY REPOLARIZATION ABNORMALITY EKG Impression: BORDERLINE PROLONGED QT INTERVAL Electronically Signed By: Yovanny Rosario 07-May-2017 13:51:53
[2017-05-04 06:57] LABS: INR 1.24 (0.83-1.16); PROTIME(PATIENT) 15.6 SEC (12.0-15.0)
[2017-05-04] MEDS ORDERED: fentaNYL 100 MCG/2 ML INJ ONE (06:57)
[2017-05-04] MEDS ORDERED: MIDAZOLAM 2 MG/2 ML VIAL ONE (06:57)
[2017-05-04] MEDS ORDERED: LIDOCAINE 1% 300 MG/30 ML SDV ONE (06:57)
[2017-05-04] MEDS ORDERED: IOPAMIDOL (ISOVUE-370) 150 ML BTL IV ONE (06:58)
[2017-05-04 07:19] LABS: ANION GAP 11 mEq/L (8-16); CALCIUM 8.6 mg/dL (8.5-10.4); CARBON DIOXIDE 21 mEq/l (22-31); CHLORIDE 107 mEq/L (97-110); CHOLESTEROL 136 mg/dL (140-220); CHOLESTEROL/HDL RATIO 3.32 RATIO (1.00-4.97); CREATININE 0.7 mg/dL (0.7-1.3); GLOMERULAR FILTRATION RATE > 60; GLUCOSE 70 mg/dL (70-100); HIGH DENSITY LIPOPROTEIN 41 mg/dL (40-65); LDL/HDL RATIO 1.98 RATIO (1.00-3.64); LOW DENSITY LIPOPROTEIN 81 mg/dL (80-100); MAGNESIUM 1.6 mg/dL (1.6-2.3); NON-HIGH DENSITY LIPOPROTEIN 95 mg/dL (90-129); POTASSIUM 3.7 mEq/L (3.5-5.2); SODIUM 139 mEq/L (134-144); TRIGLYCERIDE 73 mg/dL (40-150); VERY LOW DENSITY LIPOPROTEINS 14 mg/dL (8-25)
[2017-05-04] MEDS ORDERED: HEPARIN 10,000 UNIT/10 ML MDV ONE (07:25)
[2017-05-04] MEDS ORDERED: ATROPINE SULFATE 1 MG/10 ML SYR ONE (07:35)
[2017-05-04] MEDS ORDERED: ATROPINE SULFATE 1 MG/10 ML SYR IVP PRN (08:05)
[2017-05-04] MEDS ORDERED: ONDANSETRON 4 MG/2 ML VIAL IVP PRN (08:05)
[2017-05-04] MEDS ORDERED: NITROGLYCERIN 0.4 MG BTL SL PRN (08:05)
[2017-05-04] MEDS ORDERED: OXYCODONE/APAP 5/325 TAB PO PRN (08:05)
[2017-05-04] MEDS ORDERED: HYDROCODONE/APAP 5/325 TAB PO PRN (08:05)
--- NOTE | 2017-05-04 10:48 | CPIP ---
[f rep st] INVASIVE CARDIAC PROCEDURE DATE OF PROCEDURE: 05/04/2017 INDICATION FOR PROCEDURE: Shortness of breath, heart failure. PROCEDURE: 1. Nonselective left groin sheathogram. 2. 7-[place]serr[place] sheath, left common femoral vein. 3. Right heart catheterization with Danby-Luli catheter. 4. Bilateral coronary angiography. 5. Left groin closure with 6-[place] Angio-Seal. HISTORY: Briefly, this is a 62-year-old male with history of critical aortic stenosis, recurrent hea rt failure, who has been complaining of worsening shortness of breath. The patient had been seen by CT Surgery by Dr. Glen Mason, and due to the patient's significant obesity, as well as history of pu lmonary hypertension and severe lifestyle, social limitations, the patient was deemed to be a high-ri sk candidate for open-heart surgery. The patient presents for right and left heart catheterization, in anticipation for eventually TAVR. DESCRIPTION OF PROCEDURE: After informed consent was obtained, patient brought to [facility], where the lef t groin was prepped and draped in sterile fashion Using lidocaine, a short 6-Montserratian sheath was introd uced into the left common femoral artery, verified angiographically. A 7-Montserratian sheath in the left c ommon vein. Through the 7-Montserratian sheath, a Danby-Luli catheter was advanced. Right heart catheteriza tion was then obtained, which showed a mean RA pressure of 19, with an A wave of 19, a V wave of 19, RV pressure was 85/12. PA pressure was measured to be 82/34 with a mean of 53. Wedge pressure was 3 5. Yamil cardiac output was 7.8. Yamil cardiac index was 3.4. AO sat was 93%. PA sat was 78%. Danby -Luli catheter was then removed. A JL4 catheter was then advanced through the 6-Montserratian sheath, which showed normal left main. Left circumflex artery appeared to be a codominant circulation. The appeared to be healthy, free of disease. It was a large marginal one with multiple trifurcatin g vessels distally, which appeared to be healthy and free of disease. The LAD was a long vessel whic h wrapped around the apex. The LAD had what appeared to be calcified 30% disease in its mid body. D istally, the vessel appeared to be widely patent. There was a large septal heel caser coming off the proximal portion of the LAD, which had a secondary septal heel caser, which had a 70% ostial stenosis . However, this was again a septal heel caser, which was a side branch of a larger septal. The diag onal arteries were small, and there were multiple diagonals coming off, which were apparently healthy and free of disease. After these images were seen, the JL4 catheter was removed. A JR4 catheter wa s advanced to the right coronary artery. Images of the right coronary artery revealed normal ostial RCA. There was 20% to 30% disease in the proximal RCA. In the mid RCA there was another 20% to 30% disease. Distally, the RCA appeared to be healthy and free of disease. After these images were obta ined, the JL4 catheter was removed. A pigtail catheter was advanced through the abdominal aortogram. An abdominal aortogram was obtained, which showed widely patent distal ascending aorta, widely price nt common, external, and internal iliac arteries. At this time, the pigtail catheter was removed ove r the 0.035 wire. The pigtail catheter was closed with a 6-Montserratian Angio-Seal. The 7-Montserratian sheath w as closed with manual pressure. The patient tolerated the procedure with no complications. IMPRESSION: 1. Noncritical mild bilateral coronary artery disease. 2. Severe pulmonary hypertension. 3. Patent abdominal aorta, with patent bilateral external, common, and internal iliac arteries. PLAN: The patient will have his sheath discontinued at the table. Will discharge home later this mo rning after his carotid ultrasound. He will be following up in the office in 1 week's time. Will mo ve forward with TAVR evaluation as an outpatient. /[id number]/MODL
== END 2017-05-04 12:01 | disposition home or self-care (01) ==
LOC: FCATH 06:14
PROVIDERS: ATTEND Internal Medicine Cardiovascular Disease
DX: I50.9 Heart failure, unspecified (principal); I27.20 Pulmonary hypertension, unspecified; R06.02 Shortness of breath
CPT/HCPCS: C1760; J0461; J1644; J2250; J3010; Q9967

== ENCOUNTER → 2017-05-11 | Outpatient (CLI) | payer MEDICAID ==
[~2017-05-11] MED LIST: IOPAMIDOL (ISOVUE 370) 100 ML BTL IV ONE
== END ==
LOC: FIMAGING 11:02
PROVIDERS: ATTEND Internal Medicine Cardiovascular Disease
DX: I70.0 Atherosclerosis of aorta (principal); I25.83 Coronary atherosclerosis due to lipid rich plaque; J90 Pleural effusion, not elsewhere classified; J98.9 Respiratory disorder, unspecified; K74.60 Unspecified cirrhosis of liver; K80.20 Calculus of gallbladder without cholecystitis without obstruction
CPT/HCPCS: Q9967

== ENCOUNTER 2017-05-18 06:51 | Inpatient (IN) | payer MEDICAID ==
[2017-05-18] MEDS ORDERED: ALBUMIN 5% 250 ML BOTTLE IV ONE (06:53)
[2017-05-18] MEDS ORDERED: PROTAMINE SULFATE 50 MG/5 ML VIAL IVP ONE (06:53)
[2017-05-18] MEDS ORDERED: LIDOCAINE 2% 100 MG/5 ML SYR ONE (06:54)
[2017-05-18] MEDS ORDERED: niCARdipine/NACL/200 ML BAG IV ONE (06:54)
[2017-05-18] MEDS ORDERED: DOPamine/DEXTROSE/250 ML BAG IV ONE (06:54)
[2017-05-18] MEDS ORDERED: POTASSIUM Cl (KCl) 20 MEQ/50 ML BAG IV ONE (06:54)
[2017-05-18] MEDS ORDERED: MILRINONE/DEXTROSE/100 ML BAG IV ONE (06:54)
[2017-05-18] MEDS ORDERED: CITRATE DEXTROSE SOLN 500 ML BAG ONE (06:54)
[2017-05-18] MEDS ORDERED: AMINOCAPROIC ACID 5 GM/20 ML VIAL ONE (06:54)
[2017-05-18] MEDS ORDERED: CALCIUM CHLORIDE 1 GM/10 ML INJ ONE (06:54)
[2017-05-18] MEDS ORDERED: NA BICARBONATE 50 MEQ/50 ML VIAL ONE (06:54)
[2017-05-18] MEDS ORDERED: ceFAZolin 1 GM VIAL ONE (06:55)
[2017-05-18] MEDS ORDERED: methylPREDNISolone SOD SUCC 1 GM/8 ML VIAL ONE (06:55)
[2017-05-18] MEDS ORDERED: MAGNESIUM SULFATE 1 GM/2 ML VIAL ONE (06:55)
[2017-05-18] MEDS ORDERED: AMIODARONE HCL 150 MG/3 ML VIAL ONE (06:55)
[2017-05-18] MEDS ORDERED: HEPARIN 10,000 UNIT/10 ML MDV ONE (06:55)
[2017-05-18] MEDS ORDERED: ADENOSINE 6 MG/2 ML VIAL ONE (06:55)
--- NOTE | 2017-05-18 07:00 | PDPROPOC ---
Sedation Plan of Care Sedation Plan of Care: vital signs stable, mental status noted ASA Classification: ASA 2 Planned drugs: other Mallampati Score: Class 2 Mallampati Reference Image: Patient passed 3-3-2 rule?: Yes
[2017-05-18] MEDS ORDERED: LIDOCAINE 1% 300 MG/30 ML SDV ONE (07:01)
[2017-05-18] MEDS ORDERED: IOPAMIDOL (ISOVUE-370) 150 ML BTL IV ONE (07:01)
[2017-05-18] MEDS ORDERED: ROCURONIUM 100 MG/10 ML VIAL ONE (07:21)
[2017-05-18] MEDS ORDERED: LIDOCAINE 2% 5 ML SDV ONE (07:21)
[2017-05-18] MEDS ORDERED: fentaNYL 100 MCG/2 ML INJ ONE (07:22)
[2017-05-18] MEDS ORDERED: PROPOFOL 200 MG/20 ML VIAL ONE (07:22)
[2017-05-18] MEDS ORDERED: PHENYLEPHRINE 10 MG/ML SDV ONE (07:26)
--- NOTE | 2017-05-18 07:49 | PDANEPAE ---
ANE History of Present Illness tavr ANE Past Medical History - Cardiovascular History Hx Hypertension: Yes Hx Arrhythmias: No Hx Chest Pain: Yes Hx Coronary Artery / Peripheral Vascular Disease: Yes Hx CHF / Valvular Disease: Yes Hx Palpitations: No - Pulmonary History Hx COPD: No Hx Asthma/Reactive Airway Disease: No Hx Recent Upper Respiratory Infection: No Hx Oxygen in Use at Home: No Hx Sleep Apnea: No Pulmonary History Comment: pulm htn - Endocrine History Hx Diabetes: Yes - Renal History Hx Renal Disorders: No - Liver History Hx Hepatic Disorders: Yes - Chronic Pain History Chronic Pain: No ANE Review of Systems Review of Systems: - Exercise capacity METS (RN): 2 METS ANE Patient History - Allergies Allergies/Adverse Reactions: No Known Allergies Allergy (Unverified 12/08/16 14:58) - Home Medications Home Medications: Insulin Regular Human [novoLIN R] 0 unit SQ AD 12/08/16 [Last Taken 12/08/16 30 units] Aspirin [Aspirin 325 mg (*)] 325 mg PO DAILY 04/29/17 [Last Taken Unknown] Furosemide [Lasix 20 MG (*)] 20 mg PO DAILY 04/29/17 [Last Taken Unknown] NPH, HUMAN INSULIN ISOPHANE [NOVOLIN N] 0 unit SQ AD 04/29/17 [Last Taken Unknown] - Anes Hx Hx Anesthesia Complications (with details): none prior - Smoking Hx Smoking Status: Never smoked ANE Labs/Vital Signs - Vital Signs Height: 170 cm Weight: 115.7 kg ANE Physical Exam - Airway Mallampati Score: Class 2 Mouth exam: normal dental/mouth exam - Pulmonary Pulmonary: no respiratory distress - Cardiovascular Cardiovascular: regular rate and rhythym - ASA Status ASA Status: IV ANE Anesthesia Plan Anesthesia Plan: general endotracheal anesthesia Lines/Monitors: central line
[2017-05-18] MEDS ORDERED: SUCCINYLCHOLINE CHLORIDE*ANESTHESIA ONLY*200 MG/10 ML SYR IVP ONE (07:52)
[2017-05-18] MEDS ORDERED: CEFAZOLIN 1 GM/DEXTROSE/50 ML BAG IV ONE (08:05)
[2017-05-18] MEDS ORDERED: SUGAMMADEX SODIUM 200 MG/2 ML VIAL IVP ONE ×2 (09:22)
[2017-05-18] MEDS ORDERED: ONDANSETRON 4 MG/2 ML VIAL IVP PRN (09:56)
[2017-05-18] MEDS ORDERED: HYDROmorphONE/DILAUDID 1 MG/ML INJ IVP PRN (09:56)
[2017-05-18] MEDS ORDERED: oxyCODONE IR 5 MG TAB PO PRN (09:56)
[2017-05-18] MEDS ORDERED: IBUPROFEN 800 MG TAB PO PRN (09:56)
[2017-05-18] MEDS ORDERED: hydrALAZINE 20 MG/ML VIAL IVP PRN (09:56)
[2017-05-18] MEDS ORDERED: ATROPINE SULFATE 1 MG/10 ML SYR IVP PRN (09:56)
[2017-05-18] MEDS ORDERED: ONDANSETRON DISINTEGRATING 4 MG TAB PO PRN (09:56)
--- NOTE | 2017-05-18 10:00 | POSTANESTH ---
Post Anesthetic Evaluation Cardiovascular Status: Normal, Stable Respiratory Status: Normal, Stable Level of Consciousness/Mental Status: Can Participate in Eval Pain Control: Adequate, Prn Tx Ordered Nausea/Vomiting Control: Adequate, Prn Tx Ordered Complications Possibly Related to Anesthesia: None Noted
[2017-05-18] MEDS ORDERED: NALOXONE HCL 0.4 MG/ML INJ IVP PRN (10:01)
[2017-05-18] MEDS ORDERED: fentaNYL 100 MCG/2 ML INJ IVP PRN (10:01)
[2017-05-18] MEDS ORDERED: ALBUTEROL 3 ML DEYVIAL IH PRN (10:01)
[2017-05-18] MEDS ORDERED: LR 500 ML IV PRN (10:01)
[2017-05-18] MEDS ORDERED: D50W 25 GM/50 ML SYR IVP PRN ×2 (10:59→11:15)
[2017-05-18] MEDS ORDERED: ACETAMINOPHEN 325 MG TAB PO SCH (12:00)
--- NOTE | 2017-05-18 12:30 | CPIP ---
[f rep st] INVASIVE CARDIAC PROCEDURE DATE OF PROCEDURE: 05/18/2017 REFERRING PHYSICIAN: ANDRES Arana INDICATION FOR PROCEDURE: Critical aortic stenosis. CO-SURGEONS FOR THE CASE: Glen Mason DO; Karen Rincon MD. ANESTHESIOLOGIST: Malik Bentley MD. NAME OF PROCEDURE: 1. Nonselective left groin sheathogram. 2. Nonselective right groin sheathogram. 3. 6-[place] sheath, left common femoral vein. 4. Up sizing the right common femoral artery to 6-[place] sheath with triple preclose placements to a 16-[place] sheath. 5. Left ventriculogram, crossing of LV with trace stiff wire and AL1 catheter. 6. Aortic root angiography. 7. Placement of Medtronic CoreValve Evolut 34 mm valve by the transfemoral route. INDICATIONS: Briefly, this is a 62-year-old male with a history of trileaflet critical aortic stenos is who has a history of morbid obesity and cirrhosis of the liver. Patient was deemed to be a high-ri sk candidate for open AVR by [address] Given these findings, patient was consented for transfemoral TAVR. DESCRIPTION OF PROCEDURE: After informed consent, patient was brought to [facility] where the patient was e lectively intubated. 1 gram of Ancef electively administered. Patient had a right IJ 6-[place] sheath placed by Anesthesia with a temporary pacemaker wire placed into the right ventricle by Anesthesia. A 6-[place] sheath was then placed in the left common femoral artery and verified angiographically. A 6 -[place] sheath placed in the right common femoral artery and verified angiographically. The 6-[place] sheath to the left common femoral artery was then upsized to an 8-[place] sheath. A 6-[place] sheath wa s then placed in the left common femoral vein. The 6-[place] sheath in right common femoral artery was then upsized to an 8-[place] sheath after triple preclose placements. The Lunderquist wire was placed into the descending aorta over a glide catheter and the sheath in the right common femoral artery wa s upsized to a 16-[place] Dun[place]gan sheath. Patient was administered 10,000 heparin IV. The valve was cross ed with an AL1 catheter, switched with Glidewire, switched out for a pigtail catheter, then switched out for a Confida wire. A Medtronic CoreValve Evolut 34 valve was chosen to be placed. It was placed successfully across the valve. Postdeployment showed excellent apposition of the valve with no eviden ce of AI or perivalvular leak. After deployment of the valve, the pigtail catheter was removed. The r ight groin was closed with preclose placement as well as a 6-[place]ian Angio-Seal. Left groin was close d with an 8-[place] Angio-Seal. 6-[place] sheath was removed with manual pressure. Patient tolerated th e procedure well with no complications. Of note, the patient did have development of a left bundle br anch which resolved back to sinus rhythm by the end of the case. IMPRESSION: Successful placement of Medtronic CoreValve Evolut 34 via the transfemoral route. PLAN: The patient will be admitted to the ICU. Further orders following clinical course. /[id number]/MODL
--- NOTE | 2017-05-18 12:30 | CPIP ---
[f rep st] INVASIVE CARDIAC PROCEDURE DATE OF PROCEDURE: 05/18/2017 REFERRING PHYSICIAN: ANDRES Arana INDICATION FOR PROCEDURE: Critical aortic stenosis. CO-SURGEONS FOR THE CASE: Glen Mason DO; Karen Rincon MD. ANESTHESIOLOGIST: Malik Bentley MD. NAME OF PROCEDURE: 1. Nonselective left groin sheathogram. 2. Nonselective right groin sheathogram. 3. 6-[place]izen [place] sheath, left common femoral vein. 4. Up sizing the right common femoral artery to 6-[place] sheath with triple preclose placements to a 16-[place] sheath. 5. Left ventriculogram, crossing of LV with trace stiff wire and AL1 catheter. 6. Aortic root angiography. 7. Placement of Medtronic CoreValve Evolut 34 mm valve by the transfemoral route. INDICATIONS: Briefly, this is a 62-year-old male with a history of trileaflet critical aortic stenos is who has a history of morbid obesity and cirrhosis of the liver. Patient was deemed to be a high-ri sk candidate for open AVR by [address]. Given these findings, patient was consented for transfemoral TAVR. DESCRIPTION OF PROCEDURE: After informed consent, patient was brought to [facility] where the patient was e lectively intubated. 1 gram of Ancef electively administered. Patient had a right IJ 6-[place] sheath placed by Anesthesia with a temporary pacemaker wire placed into the right ventricle by Anesthesia. A 6-[place] sheath was then placed in the left common femoral artery and verified angiographically. A 6 -[place] sheath placed in the right common femoral artery and verified angiographically. The 6-[place] sheath to the left common femoral artery was then upsized to an 8-[place] sheath. A 6-[place] sheath wa s then placed in the left common femoral vein. The 6-[place] sheath in right common femoral artery was then upsized to an 8-[place] sheath after triple preclose placements. The [place]underquist wire was placed into the descending aorta over a glide catheter and the sheath in the right common femoral artery wa s upsized to a 16-[place] sheath. Patient was administered 10,000 heparin IV. The valve was cross ed with an AL1 catheter, switched with Glidewire, switched out for a pigtail catheter, then switched out for a Confida wire. A Medtronic CoreValve Evolut 34 valve was chosen to be placed. It was placed successfully across the valve. Postdeployment showed excellent apposition of the valve with no eviden ce of AI or perivalvular leak. After deployment of the valve, the pigtail catheter was removed. The r ight groin was closed with preclose placement as well as a 6-[place] Angio-Seal. Left groin was close d with an 8-[place] Angio-Seal. 6-[place] sheath was removed with manual pressure. Patient tolerated th e procedure well with no complications. Of note, the patient did have development of a left bundle br anch which resolved back to sinus rhythm by the end of the case. IMPRESSION: Successful placement of Medtronic CoreValve Evolut 34 via the transfemoral route. PLAN: The patient will be admitted to the ICU. Further orders following clinical course. /[id number]/MODL
--- NOTE | 2017-05-18 12:30 | CPIP ---
[f rep st] INVASIVE CARDIAC PROCEDURE DATE OF PROCEDURE: 05/18/2017 REFERRING PHYSICIAN: ANDRES Arana INDICATION FOR PROCEDURE: Critical aortic stenosis. CO-SURGEONS FOR THE CASE: Glen Mason DO; Karen Rincon MD. ANESTHESIOLOGIST: Malik Bentley MD. NAME OF PROCEDURE: 1. Nonselective left groin sheathogram. 2. Nonselective right groin sheathogram. 3. 6-Swiss sheath, left common femoral vein. 4. Up sizing the right common femoral artery to 6-Swiss sheath with triple preclose placements to a 16-Swiss Lagrange sheath. 5. Left ventriculogram, crossing of LV with trace stiff wire and AL1 catheter. 6. Aortic root angiography. 7. Placement of Medtronic CoreValve Evolut 34 mm valve by the transfemoral route. INDICATIONS: Briefly, this is a 62-year-old male with a history of trileaflet critical aortic stenos is who has a history of morbid obesity and cirrhosis of the liver. Patient was deemed to be a high-ri sk candidate for open AVR by [address] surgeons. Given these findings, patient was consented for transfemoral TAVR. DESCRIPTION OF PROCEDURE: After informed consent, patient was brought to [facility] where the patient was e lectively intubated. 1 gram of Ancef electively administered. Patient had a right IJ 6-Swiss sheath placed by Anesthesia with a temporary pacemaker wire placed into the right ventricle by Anesthesia. A 6-Swiss sheath was then placed in the left common femoral artery and verified angiographically. A 6 -Swiss sheath placed in the right common femoral artery and verified angiographically. The 6-Swiss sheath to the left common femoral artery was then upsized to an 8-Swiss sheath. A 6-Swiss sheath wa s then placed in the left common femoral vein. The 6-Swiss sheath in right common femoral artery was then upsized to an 8-Swiss sheath after triple preclose placements. The Lunderquist wire was placed into the descending aorta over a glide catheter and the sheath in the right common femoral artery wa s upsized to a 16-Swiss Lagrange sheath. Patient was administered 10,000 heparin IV. The valve was cross ed with an AL1 catheter, switched with Glidewire, switched out for a pigtail catheter, then switched out for a Confida wire. A Medtronic CoreValve Evolut 34 valve was chosen to be placed. It was placed successfully across the valve. Postdeployment showed excellent apposition of the valve with no eviden ce of AI or perivalvular leak. After deployment of the valve, the pigtail catheter was removed. The r ight groin was closed with preclose placement as well as a 6-Swiss Angio-Seal. Left groin was close d with an 8-Swiss Angio-Seal. 6-Swiss sheath was removed with manual pressure. Patient tolerated th e procedure well with no complications. Of note, the patient did have development of a left bundle br anch which resolved back to sinus rhythm by the end of the case. IMPRESSION: Successful placement of Medtronic CoreValve Evolut 34 via the transfemoral route. PLAN: The patient will be admitted to the ICU. Further orders following clinical course. /[id number]/MODL
[2017-05-18] MEDS: INSULIN LISPRO 100 UNIT/ML SC SCH ×2 (13:45→17:52)
[2017-05-18] MEDS ORDERED: ACETAMINOPHEN 325 MG TAB PO PRN (15:00)
--- NOTE | 2017-05-18 16:22 | ASMTCMCOM ---
CM Note CM Note Notes: 62 year old male who lives at 8500' admitted for TAVR procedure. Has a hx of obesity, DM, Cirrhosis, Aortic stenosis, Mitral regurg, Depression. Surgery today. CM not anticipating that patient will have discharge needs. Date Signed: 05/18/2017 04:22 PM Electronically Signed By:Latasha Jauregui LCSW
--- NOTE | 2017-05-18 16:28 | ECHO ---
[email or web address] [address] [address] Main: [phone] Fax: Transesophageal Echocardiography Name: JONNATHAN MILLER MR#: [id number] Study Date: 05/18/2017 Study Time: 08:35 AM Date of : 1955 Age: 62 year(s) Height: ( ) Weight: ( ) BSA: Gender: Male Examination: KHUSHBOO Indication: TAVR Image Quality: Contrast: Requested by: Adebayo Khalil Heart Rate: Rhythm: Normal sinus rhythm BP: 131 mmHg/65 mmHg Procedure Staff Mixed Livestock Farm Worker: Renato Ruiz Reading Physician: Karen Rincon Requesting Provider: Adebayo Khalil Conclusions: Successful TAVR implant with no perivalvular leak and normal prosthetic valve hemodynamics. Measurements: Chambers Valvular Assessment AV/MV Valvular Assessment TV/PV Normal Normal Normal Name Value Range Name Value Range Name Value Range LVOTd 2.2 cm 2.2 cm mm AV meanP mmHg ( - ) SHOSHANA (VTI): 1.7 cm ( - ) Additional Measurements: Findings: Exam Comments: Pre TAVR, normal LV systolic function and normal wall motion, Moderate to severe AR, Severe Aortic Valve Calcification and severe Aortic Stenosis. Mild to moderate MR. There is a small PFO vs ASD noted with left to right shunting by colorflow doppler. No pericardial effusion Post TAVR, Normal LV systolic function and normal wall motion. No perivalvular leak. Prosthetic AVR (34 mm Evolut R) in good position with normal Ao leaflet opening. Mean trans aortic valve gradient is 17 mmHg with a calculated SHOSHANA of 1.74 cm2. Mild MR. No pericardial effusion. l1n (No Signature Object) Patient: JONNATHAN MILLER Study Date: 05/18/2017 Page 1 of 2 08:35 AM Patient: JONNATHAN MILLER Study Date: 05/18/2017 Page 2 of 2 08:35 AM [id number]
--- NOTE | 2017-05-18 16:28 | ECHO ---
[email or web address] [address] [address] Main: [phone] Fax: Transesophageal Echocardiography Name: JONNATHAN MILLER MR#: [id number] Study Date: 05/18/2017 Study Time: 08:35 AM Date of : 1955 Age: 62 year(s) Height: ( ) Weight: ( ) BSA: Gender: Male Examination: KHUSHBOO Indication: TAVR Image Quality: Contrast: Requested by: Adebayo Khalil Heart Rate: Rhythm: Normal sinus rhythm BP: 131 mmHg/65 mmHg Procedure Staff Religious Activities Director: Renato Ruiz Reading Physician: Karen Rincon Requesting Provider: Adebayo Khalil Conclusions: Successful TAVR implant with no perivalvular leak and normal prosthetic valve hemodynamics. Measurements: Chambers Valvular Assessment AV/MV Valvular Assessment TV/PV Normal Normal Normal Name Value Range Name Value Range Name Value Range LVOTd 2.2 cm 2.2 cm mm AV meanP mmHg ( - ) SHOSHANA (VTI): 1.7 cm ( - ) Additional Measurements: Findings: Exam Comments: Pre TAVR, normal LV systolic function and normal wall motion, Moderate to severe AR, Severe Aortic Valve Calcification and severe Aortic Stenosis. Mild to moderate MR. There is a small PFO vs ASD noted with left to right shunting by colorflow doppler. No pericardial effusion Post TAVR, Normal LV systolic function and normal wall motion. No perivalvular leak. Prosthetic AVR (34 mm Evolut R) in good position with normal Ao leaflet opening. Mean trans aortic valve gradient is 17 mmHg with a calculated SHOSHANA of 1.74 cm2. Mild MR. No pericardial effusion. l1n (No Signature Object) Patient: JONNATHAN MILLER Study Date: 05/18/2017 Page 1 of 2 08:35 AM Patient: JONNATHAN MILLER Study Date: 05/18/2017 Page 2 of 2 08:35 AM [id number]
--- NOTE | 2017-05-18 16:28 | ECHO ---
[email or web address] [address] [address] Main: [phone] Fax: Transesophageal Echocardiography Name: JONNATHAN MILLER MR#: [id number] Study Date: 05/18/2017 Study Time: 08:35 AM Date of : 1955 Age: 62 year(s) Height: ( ) Weight: ( ) BSA: Gender: Male Examination: KHUSHBOO Indication: TAVR Image Quality: Contrast: Requested by: Adebayo Khalil Heart Rate: Rhythm: Normal sinus rhythm BP: 131 mmHg/65 mmHg Procedure Staff Home Health Nurse Licensed Practical: Renato Ruiz Reading Physician: Karen Rincon Requesting Provider: Adebayo Khalil Conclusions: Successful TAVR implant with no perivalvular leak and normal prosthetic valve hemodynamics. Measurements: Chambers Valvular Assessment AV/MV Valvular Assessment TV/PV Normal Normal Normal Name Value Range Name Value Range Name Value Range LVOTd 2.2 cm 2.2 cm mm AV meanP mmHg ( - ) SHOSHANA (VTI): 1.7 cm ( - ) Additional Measurements: Findings: Exam Comments: Pre TAVR, normal LV systolic function and normal wall motion, Moderate to severe AR, Severe Aortic Valve Calcification and severe Aortic Stenosis. Mild to moderate MR. There is a small PFO vs ASD noted with left to right shunting by colorflow doppler. No pericardial effusion Post TAVR, Normal LV systolic function and normal wall motion. No perivalvular leak. Prosthetic AVR (34 mm Evolut R) in good position with normal Ao leaflet opening. Mean trans aortic valve gradient is 17 mmHg with a calculated SHOSHANA of 1.74 cm2. Mild MR. No pericardial effusion. l1n (No Signature Object) Patient: JONNATHAN MILLER Study Date: 05/18/2017 Page 1 of 2 08:35 AM Patient: JONNATHAN MILLER Study Date: 05/18/2017 Page 2 of 2 08:35 AM [id number]
[2017-05-19 04:55] LABS: PLATELET COUNT 119 10^3/uL (150-400)
[2017-05-19 05:11] LABS: INR 1.47 (0.83-1.16); PROTIME(PATIENT) 17.8 SEC (12.0-15.0)
--- NOTE | 2017-05-19 06:53 | PDCARPN ---
Cardiology Progress Note Chief Complaint: s/p TAVR Assessment/Plan: Assessment: s/p TAVR Plan: OOB PT check labs in AM Echo today transfer to PCU d/c in AM if stable 05/19/17 06:51 Subjective: no complaints Reviewed/Discussed With: other (RN) Time Spent With Patient: 25 Objective: Vital Signs (8 Hrs) Temp Pulse Resp BP Pulse Ox 05/19/17 06:00 83 22 H 110/43 L 95 05/19/17 05:00 85 20 118/58 L 95 05/19/17 04:00 36.8 C 89 20 114/55 L 96 05/19/17 03:00 85 20 115/53 L 96 05/19/17 02:00 79 17 107/47 L 94 05/19/17 01:00 76 14 110/58 L 91 L 05/19/17 00:00 37.1 C 85 20 112/52 L 95 05/18/17 23:00 88 20 105/53 L 95 Intake/Output (24 Hrs) 05/18/17 05/19/17 05/20/17 05:59 05:59 05:59 Intake Total 800 Output Total 785 Balance 15 Intake: Oral (ml) 750 IV Intake (ml) 50 Output: Urine (ml) 785 Catheter 310 Urinal 475 Other: Weight 115.7 kg Intake Quantity Yes Sufficient Number of Voids Urinal 1 Number of Stools Urinal 1 Result Diagrams: 05/19/17 04:44 05/19/17 04:44 - Physical Exam Constitutional: obese Eyes: PERRL Cardiovascular: regular rate and rhythm, systolic murmur Peripheral Pulses: 1+: femoral (R), femoral (L) Respiratory: clear to auscultate bilat ICD10 Worksheet Patient Problems: Problems Problem Status Onset Dyspnea on exertion Acute Right heart failure Acute
[2017-05-19] MEDS: INSULIN LISPRO 100 UNIT/ML SC SCH ×3 (07:27→18:25)
[2017-05-19] MEDS ORDERED: CEPACOL LOZENGE PO PRN (08:38)
[2017-05-19] MEDS ORDERED: BISACODYL 10 MG SUPP PR PRN (08:38)
[2017-05-19] MEDS ORDERED: LACTULOSE 20 GM/30 ML UDCUP PO PRN (08:38)
[2017-05-19] MEDS ORDERED: POLYETHYLENE GLYCOL 3350 17 GM PKT PO PRN (08:38)
[2017-05-19] MEDS ORDERED: MAGNESIUM HYDROXIDE 30 ML UDCUP PO PRN (08:38)
[2017-05-19] MEDS ORDERED: HYDROCODONE/APAP 5/325 TAB PO PRN (08:38)
[2017-05-19] MEDS ORDERED: traMADol 50 MG TAB PO PRN (08:38)
--- NOTE | 2017-05-19 08:45 | CPEKG ---
Heart Rate: 84 RR Interval: 714 P-R Interval: 184 QRSD Interval: 104 QT Interval: 408 QTC Interval: 483 P [place]: 52 QRS [place]: -47 T Wave [place]: 113 EKG Severity - ABNORMAL ECG - EKG Impression: SINUS RHYTHM EKG Impression: PROBABLE LEFT ATRIAL ABNORMALITY EKG Impression: LEFT ANTERIOR FASCICULAR BLOCK EKG Impression: BORDERLINE PROLONGED QT INTERVAL Electronically Signed By: Yovanny Rosario 19-May-2017 10:01:19
[2017-05-19] MEDS: ASPIRIN 81 MG CHEWABLE TAB PO SCH (09:57)
[2017-05-19] MEDS: SENNOSIDES/DOCUSATE SODIUM TAB PO SCH ×2 (09:58→20:39)
[2017-05-19] MEDS: SODIUM CL NASAL 45 ML BTL EACHNARE SCH ×2 (09:58→20:37)
--- NOTE | 2017-05-19 12:49 | ECHO ---
[email or web address] [address] [address] Main: [phone] Fax: Transthoracic Echocardiogram Name: JONNATHAN MILLER MR#: [id number] Study Date: 05/19/2017 Study Time: 07:50 AM Date of : 1955 Age: 62 year(s) Height: 167.6 cm (66 in.) Weight: 115.67 kg (255 lb.) BSA: 2.22 m2 Gender: Male Examination: Echo Indication: S/P TAVR Image Quality: Contrast: Requested by: Adebayo Khalil BP: 119 mmHg/57 mmHg Heart Rate: Rhythm: Indication: S/P TAVR Procedure Staff Data Analyst Etl Developer: Renato Ruiz Reading Physician: Adebayo Khalil Requesting Provider: Conclusions: Normal global systolic LV function. Trivial mitral valve regurgitation. S/P TAVR, Max velocity across the valve 2.3m/s, 14/22 mmHg mean/max pressure gradient. mild perivalvular leak.. Trivial tricuspid valve regurgitation. No pericardial effusion. Measurements: Chambers Valvular Assessment AV/MV Valvular Assessment TV/PV Normal Normal Normal Name Value Range Name Value Range Name Value Range Ao Elvia (MM): 2.8 cm (2.2 cm-3.7 AV Vmax: 2.39 m/s (1 m/s-1.7 PV Vmax: 1.22 m/s (0.6 m/s-0.9 cm) m/s) m/s) IVSd (2D): 1.0 cm (0.6 cm-1.1 AV maxP mmHg ( - ) PV PGmax: 6 mmHg ( - ) cm) AV meanP mmHg ( - ) LVDd (2D): 5.6 cm (4.2 cm-5.9 SHOSHANA (VTI): 1.2 cm ( - ) cm) LVDs (2D): 3.6 cm (2.1 cm-4 cm) LVPWd (2D): 1.2 cm (0.6 cm-1 cm) LVOTd 2.0 cm 2.0 cm mm LVEF (2D): 63 (>=54 %) Continued Measurements: Chambers Valvular Assessment AV/MV Name Value Name Value LADs Lon.2 cm MV E' Septal: 0.05 m/s LA Area: 27.1 cm2 Patient: JONNATHAN MILLER Study Date: 05/19/2017 Page 1 of 2 07:50 AM Findings: Left Ventricle: Normal size left ventricle. Normal global systolic LV function. EF is 63 %. No regional wall motion abnormality. Right Ventricle: Normal size right ventricle. Normal RV function. Left Atrium: The left atrium is normal in size. Known left to right shunt across the interatrial septum by colorflow doppler. Right Atrium: The right atrium is normal in size. Mitral Valve: The mitral valve is normal in appearance. Trivial mitral valve regurgitation. No mitral stenosis is present. Aortic Valve: Trivial aortic valve regurgitation. S/P TAVR, Max velocity across the valve 2.3m/s, 14/22 mmHg mean/max pressure gradient. mild perivalvular leak.. Tricuspid Valve: The tricuspid valve is normal in appearance and function. Trivial tricuspid valve regurgitation. The pulmonary artery pressure is normal. Pulmonic Valve: The pulmonic valve is normal in appearance and function. Aorta: The aorta is normal. Pericardium: No pericardial effusion. (No Signature Object) Patient: JONNATHAN MILLER Study Date: 05/19/2017 Page 2 of 2 07:50 AM [id number]
--- NOTE | 2017-05-19 12:49 | ECHO ---
[email or web address] [address] [address] Main: [phone] Fax: Transthoracic Echocardiogram Name: JONNATHAN MILLER MR#: [id number] Study Date: 05/19/2017 Study Time: 07:50 AM Date of : 1955 Age: 62 year(s) Height: 167.6 cm (66 in.) Weight: 115.67 kg (255 lb.) BSA: 2.22 m2 Gender: Male Examination: Echo Indication: S/P TAVR Image Quality: Contrast: Requested by: Adebayo Khalil BP: 119 mmHg/57 mmHg Heart Rate: Rhythm: Indication: S/P TAVR Procedure Staff Computer Systems Architect: Renato Ruiz Reading Physician: Adebayo Khalil Requesting Provider: Conclusions: Normal global systolic LV function. Trivial mitral valve regurgitation. S/P TAVR, Max velocity across the valve 2.3m/s, 14/22 mmHg mean/max pressure gradient. mild perivalvular leak.. Trivial tricuspid valve regurgitation. No pericardial effusion. Measurements: Chambers Valvular Assessment AV/MV Valvular Assessment TV/PV Normal Normal Normal Name Value Range Name Value Range Name Value Range Ao Elvia (MM): 2.8 cm (2.2 cm-3.7 AV Vmax: 2.39 m/s (1 m/s-1.7 PV Vmax: 1.22 m/s (0.6 m/s-0.9 cm) m/s) m/s) IVSd (2D): 1.0 cm (0.6 cm-1.1 AV maxP mmHg ( - ) PV PGmax: 6 mmHg ( - ) cm) AV meanP mmHg ( - ) LVDd (2D): 5.6 cm (4.2 cm-5.9 SHOSHANA (VTI): 1.2 cm ( - ) cm) LVDs (2D): 3.6 cm (2.1 cm-4 cm) LVPWd (2D): 1.2 cm (0.6 cm-1 cm) LVOTd 2.0 cm 2.0 cm mm LVEF (2D): 63 (>=54 %) Continued Measurements: Chambers Valvular Assessment AV/MV Name Value Name Value LADs Lon.2 cm MV E' Septal: 0.05 m/s LA Area: 27.1 cm2 Patient: JONNATHAN MILLER Study Date: 05/19/2017 Page 1 of 2 07:50 AM Findings: Left Ventricle: Normal size left ventricle. Normal global systolic LV function. EF is 63 %. No regional wall motion abnormality. Right Ventricle: Normal size right ventricle. Normal RV function. Left Atrium: The left atrium is normal in size. Known left to right shunt across the interatrial septum by colorflow doppler. Right Atrium: The right atrium is normal in size. Mitral Valve: The mitral valve is normal in appearance. Trivial mitral valve regurgitation. No mitral stenosis is present. Aortic Valve: Trivial aortic valve regurgitation. S/P TAVR, Max velocity across the valve 2.3m/s, 14/22 mmHg mean/max pressure gradient. mild perivalvular leak.. Tricuspid Valve: The tricuspid valve is normal in appearance and function. Trivial tricuspid valve regurgitation. The pulmonary artery pressure is normal. Pulmonic Valve: The pulmonic valve is normal in appearance and function. Aorta: The aorta is normal. Pericardium: No pericardial effusion. (No Signature Object) Patient: JONNATHAN MILLER Study Date: 05/19/2017 Page 2 of 2 07:50 AM [id number]
--- NOTE | 2017-05-19 12:49 | ECHO ---
[email or web address] [address] [address] Main: [phone] Fax: Transthoracic Echocardiogram Name: JONNATHAN MILLER MR#: [id number] Study Date: 05/19/2017 Study Time: 07:50 AM Date of : 1955 Age: 62 year(s) Height: 167.6 cm (66 in.) Weight: 115.67 kg (255 lb.) BSA: 2.22 m2 Gender: Male Examination: Echo Indication: S/P TAVR Image Quality: Contrast: Requested by: Adebayo Khalil BP: 119 mmHg/57 mmHg Heart Rate: Rhythm: Indication: S/P TAVR Procedure Staff Ux Lead: Renato Ruiz Reading Physician: Adebayo Khalil Requesting Provider: Conclusions: Normal global systolic LV function. Trivial mitral valve regurgitation. S/P TAVR, Max velocity across the valve 2.3m/s, 14/22 mmHg mean/max pressure gradient. mild perivalvular leak.. Trivial tricuspid valve regurgitation. No pericardial effusion. Measurements: Chambers Valvular Assessment AV/MV Valvular Assessment TV/PV Normal Normal Normal Name Value Range Name Value Range Name Value Range Ao Elvia (MM): 2.8 cm (2.2 cm-3.7 AV Vmax: 2.39 m/s (1 m/s-1.7 PV Vmax: 1.22 m/s (0.6 m/s-0.9 cm) m/s) m/s) IVSd (2D): 1.0 cm (0.6 cm-1.1 AV maxP mmHg ( - ) PV PGmax: 6 mmHg ( - ) cm) AV meanP mmHg ( - ) LVDd (2D): 5.6 cm (4.2 cm-5.9 SHOSHANA (VTI): 1.2 cm ( - ) cm) LVDs (2D): 3.6 cm (2.1 cm-4 cm) LVPWd (2D): 1.2 cm (0.6 cm-1 cm) LVOTd 2.0 cm 2.0 cm mm LVEF (2D): 63 (>=54 %) Continued Measurements: Chambers Valvular Assessment AV/MV Name Value Name Value LADs Lon.2 cm MV E' Septal: 0.05 m/s LA Area: 27.1 cm2 Patient: JONNATHAN MILLER Study Date: 05/19/2017 Page 1 of 2 07:50 AM Findings: Left Ventricle: Normal size left ventricle. Normal global systolic LV function. EF is 63 %. No regional wall motion abnormality. Right Ventricle: Normal size right ventricle. Normal RV function. Left Atrium: The left atrium is normal in size. Known left to right shunt across the interatrial septum by colorflow doppler. Right Atrium: The right atrium is normal in size. Mitral Valve: The mitral valve is normal in appearance. Trivial mitral valve regurgitation. No mitral stenosis is present. Aortic Valve: Trivial aortic valve regurgitation. S/P TAVR, Max velocity across the valve 2.3m/s, 14/22 mmHg mean/max pressure gradient. mild perivalvular leak.. Tricuspid Valve: The tricuspid valve is normal in appearance and function. Trivial tricuspid valve regurgitation. The pulmonary artery pressure is normal. Pulmonic Valve: The pulmonic valve is normal in appearance and function. Aorta: The aorta is normal. Pericardium: No pericardial effusion. (No Signature Object) Patient: JONNATHAN MILLER Study Date: 05/19/2017 Page 2 of 2 07:50 AM [id number]
[2017-05-20 03:59] LABS: PLATELET COUNT 108 10^3/uL (150-400)
[2017-05-20 04:08] LABS: INR 1.49 (0.83-1.16)
--- NOTE | 2017-05-20 06:34 | PDCARPN ---
Cardiology Progress Note Chief Complaint: s/p TAVR Assessment/Plan: Assessment: s/p TAVR Plan: OOB PT check labs in AM Echo today transfer to PCU d/c in AM if stable 05/19/17 06:51 05/20/17 06:32 Doing well Echo- NL EF, mild PVL Labs stable d/c home, f/u in 1 week Subjective: no complaints Reviewed/Discussed With: other (RN) Time Spent With Patient: 25 Objective: Vital Signs (8 Hrs) Temp Pulse Resp BP Pulse Ox 05/20/17 03:48 36.9 C 74 20 120/55 L 94 05/20/17 00:34 74 18 104/61 93 05/19/17 23:49 36.8 C 86 20 91/45 L 94 Intake/Output (24 Hrs) 05/19/17 05/20/17 05/21/17 05:59 05:59 05:59 Intake Total 800 2520 Output Total 785 Balance 15 2520 Intake: Oral (ml) 750 2520 IV Intake (ml) 50 Output: Urine (ml) 785 Catheter 310 Urinal 475 Other: Weight 115.7 kg 124.3 kg Intake Quantity Yes Sufficient Number of Voids Toilet 2 Urinal 1 Number of Stools Urinal 1 Result Diagrams: 05/20/17 03:49 05/20/17 03:49 - Physical Exam Constitutional: healthy appearing Eyes: PERRL Cardiovascular: regular rate and rhythm, systolic murmur Peripheral Pulses: 1+: femoral (R), femoral (L) Respiratory: clear to auscultate bilat ICD10 Worksheet Patient Problems: Problems Problem Status Onset Dyspnea on exertion Acute Right heart failure Acute
--- NOTE | 2017-05-20 06:57 | GDS ---
[f rep st] DISCHARGE SUMMARY DISCHARGE DIAGNOSIS: Status post transcatheter aortic valve replacement. HOSPITAL COURSE: Briefly, this is a 62-year-old male, who underwent transfemoral TAVR placement seco ndary to critical aortic stenosis, and multiple comorbid conditions, which made him a high risk johanna date for open heart surgery, including cirrhosis of the liver. The patient underwent successful curran sfemoral TAVR placement with Medtronic CoreValve Evolut 34 mm valve on 05/18/2017. Post procedure, t he patient has done very well. The patient had normal sinus rhythm, continuous through his post proc edure. His echocardiogram shows normal ejection fraction with normal bioprosthetic function with tri vial to mild perivalvular leak. The patient has been ambulating in the halls without problems. Groi ns are soft. The patient's laboratory values all have been stable for the last 48 hours. The patien t will be discharged home with his home medications including Plavix 75 p.o. daily, will reduce his a spirin from 325 to 81 mg p.o. daily. He will follow up with me in the office in 1 week's time. Will have a followup echo in 30 days. /[id number]/MODL
[2017-05-20 07:24] VITALS: BP 122/55; PULSE 76; RESP 15; TEMP 98; O2SAT 96
[2017-05-20] MEDS: INSULIN LISPRO 100 UNIT/ML SC SCH (07:25)
[2017-05-20] MEDS: ASPIRIN 81 MG CHEWABLE TAB PO SCH (07:44)
[2017-05-20] MEDS ORDERED: CLOPIDOGREL BISULFATE 75 MG TAB PO SCH (09:00)
[2017-05-20] MEDS: SODIUM CL NASAL 45 ML BTL EACHNARE SCH (09:12)
[2017-05-20] MEDS: SENNOSIDES/DOCUSATE SODIUM TAB PO SCH (09:12)
--- NOTE | 2017-05-20 11:41 | ASDISCHSUM ---
Discharge Information Plan Status:Home with Home Health Medically Cleared to Leave:05/20/2017 Discharge Date:05/20/2017 09:33 AM CM D/C Disposition:Home, Routine, Self-Care ADT D/C Disposition:Home, Routine, Self-Care Projected Discharge Date:05/20/2017 09:33 AM Transportation at D/C:Family Discharge Delay Reason: Follow-Up Date:05/20/2017 09:33 AM Discharge Slot: Final Diagnosis: Placement Information Patient Contact Information Contact Name:HELGA Relationship: Address: Work Phone: City: [facility] Phone: State/Zip Code:[place] Email: Financial Information Financial Class: Primary Plan Desc:[facility] Primary Plan Number:[id number] Secondary Plan Desc: Secondary Plan Number: Assessment Information [facility] CM Progress Note CM Note CM Note Notes: 62 year old male who lives at 8[address]' admitted for TAVR procedure. Has a hx of obesity, DM, Cirrhosis, Aortic stenosis, Mitral regurg, Depression. Surgery today. CM not anticipating that patient will have discharge needs. Date Signed: 05/18/2017 04:22 PM Electronically Signed By:Latasha Jauregui LCSW Intervention Information
--- NOTE | 2017-05-20 11:41 | ASDISCHSUM ---
Discharge Information Plan Status:Home with Home Health Medically Cleared to Leave:05/20/2017 Discharge Date:05/20/2017 09:33 AM CM D/C Disposition:Home, Routine, Self-Care ADT D/C Disposition:Home, Routine, Self-Care Projected Discharge Date:05/20/2017 09:33 AM Transportation at D/C:Family Discharge Delay Reason: Follow-Up Date:05/20/2017 09:33 AM Discharge Slot: Final Diagnosis: Placement Information Patient Contact Information Contact Name:HELGA Relationship: Address: Work Phone: City: [facility] Phone: State/Zip Code:[place] Email: Financial Information Financial Class: Primary Plan Desc:[facility] Primary Plan Number:[id number] Secondary Plan Desc: Secondary Plan Number: Assessment Information [facility] CM Progress Note CM Note CM Note Notes: 62 year old male [place] [address] admitted for TAVR procedure. Has a hx of obesity, DM, Cirrhosis, Aortic stenosis, Mitral regurg, Depression. Surgery today. CM not anticipating that patient will have discharge needs. Date Signed: 05/18/2017 04:22 PM Electronically Signed By:Latasha Jauregui LCSW Intervention Information
--- NOTE | 2017-05-20 11:41 | ASDISCHSUM ---
Discharge Information Plan Status:Home with Home Health Medically Cleared to Leave:05/20/2017 Discharge Date:05/20/2017 09:33 AM CM D/C Disposition:Home, Routine, Self-Care ADT D/C Disposition:Home, Routine, Self-Care Projected Discharge Date:05/20/2017 09:33 AM Transportation at D/C:Family Discharge Delay Reason: Follow-Up Date:05/20/2017 09:33 AM Discharge Slot: Final Diagnosis: Placement Information Patient Contact Information Contact Name:HELGA Relationship: Address: Work Phone: City: [facility] Phone: State/Zip Code:[place] Email: Financial Information Financial Class: Primary Plan Desc:[facility] Primary Plan Number:[id number] Secondary Plan Desc: Secondary Plan Number: Assessment Information [facility] CM Progress Note CM Note CM Note Notes: 62 year old male who [place] [address] admitted for TAVR procedure. Has a hx of obesity, DM, Cirrhosis, Aortic stenosis, Mitral regurg, Depression. Surgery today. CM not anticipating that patient will have discharge needs. Date Signed: 05/18/2017 04:22 PM Electronically Signed By:Latasha Jauregui LCSW Intervention Information
--- NOTE | 2017-05-22 08:52 | GOP ---
[f rep st] OPERATIVE REPORT DATE OF OPERATION: 05/18/2017 SURGEON: Glen Mason DO ANESTHESIOLOGIST: Malik Bentley MD. PREOPERATIVE DIAGNOSIS: POSTOPERATIVE DIAGNOSIS: PROCEDURE PERFORMED: Transaortic valve replacement. Please see Dr. Khalil's dictation. FINDINGS: INDICATIONS: Critical aortic stenosis. DESCRIPTION OF PROCEDURE: After placement of the wires and sheath, the Evolut R 34 mm valve was plac ed across the valve under transesophageal and fluoroscopic guidance. The valve was initially opened without significant paravalvular leak and good valvular function. The sheath was pulled back in the descending thoracic aorta. The wire was kept in the ventricle. Dr. Khalil then removed the sheath and closed the femoral artery with 8-Malay Angio-Seal. The patient was returned to the recovery [facility] in stable condition. SURGEONS FOR CASE: DO Karen Monahan MD Srinivas Iyengar, MD /[id number]/MODL
--- NOTE | 2017-05-22 08:52 | GOP ---
[f rep st] OPERATIVE REPORT DATE OF OPERATION: 05/18/2017 SURGEON: Glen Mason DO ANESTHESIOLOGIST: Malik Bentley MD. PREOPERATIVE DIAGNOSIS: POSTOPERATIVE DIAGNOSIS: PROCEDURE PERFORMED: Transaortic valve replacement. Please see Dr. Khalil's dictation. FINDINGS: INDICATIONS: Critical aortic stenosis. DESCRIPTION OF PROCEDURE: After placement of the wires and sheath, the Evolut R 34 mm valve was plac ed across the valve under transesophageal and fluoroscopic guidance. The valve was initially opened without significant paravalvular leak and good valvular function. The sheath was pulled back in the descending thoracic aorta. The wire was kept in the ventricle. Dr. Khalil then removed the sheath and closed the femoral artery with 8-Serbian Angio-Seal. The patient was returned to the recovery [facility] in stable condition. SURGEONS FOR CASE: DO Karen Monahan MD Srinivas Iyengar, MD /[id number]/MODL
--- NOTE | 2017-05-22 08:52 | GOP ---
[f rep st] OPERATIVE REPORT DATE OF OPERATION: 05/18/2017 SURGEON: Glen Mason DO ANESTHESIOLOGIST: Malik Bentley MD. PREOPERATIVE DIAGNOSIS: POSTOPERATIVE DIAGNOSIS: PROCEDURE PERFORMED: Transaortic valve replacement. Please see Dr. Khalil's dictation. FINDINGS: INDICATIONS: Critical aortic stenosis. DESCRIPTION OF PROCEDURE: After placement of the wires and sheath, the Evolut R 34 mm valve was plac ed across the valve under transesophageal and fluoroscopic guidance. The valve was initially opened without significant paravalvular leak and good valvular function. The sheath was pulled back in the descending thoracic aorta. The wire was kept in the ventricle. Dr. Khalil then removed the sheath and closed the femoral artery with 8-Croatian Angio-Seal. The patient was returned to the recovery [facility] in stable condition. SURGEONS FOR CASE: DO Karen Monahan MD Srinivas Iyengar, MD /[id number]/MODL
== END 2017-05-20 09:33 | disposition home or self-care (01) | DRG 267 ==
LOC: FCATH 06:51 → F2N 09:56 → F2W 05-19 10:50
PROVIDERS: ADMIT Internal Medicine Cardiovascular Disease; ATTEND Internal Medicine Cardiovascular Disease
PROC: 02RF38Z Replacement of Aortic Valve with Zooplastic Tissue, Percutaneous Approach (ICD-10-PCS; principal; 2017-05-18)
DX: I35.0 Nonrheumatic aortic (valve) stenosis (principal); Z00.6 Encounter for examination for normal comparison and control in clinical research program; I50.9 Heart failure, unspecified; K74.60 Unspecified cirrhosis of liver; E11.9 Type 2 diabetes mellitus without complications; Z79.4 Long term (current) use of insulin; E66.01 Morbid (severe) obesity due to excess calories; Z68.41 Body mass index [BMI] 40.0-44.9, adult
CPT/HCPCS: 82947-QW; 97161-GP; 97165-GO; C1760; C1769; C1894; J0153; J0171; J0282; J0330; J0690; J1265; J1644; J1815; J2001; J2260; J2370; J2704; J2720; J2930; J3010; J7060; P9041; Q9967